=== PATIENT | male | born 1955 | race Caucasian/White ===

== ENCOUNTER 2019-01-14 09:09 | Emergency (ER) | payer OTHER ==
[~2019-01-14] VITALS: Ht 172.7 cm; Wt 85.3 kg
--- OUTSIDE RECORDS SUMMARY | 2019-01-14 09:11 | XMS REPORT ---
Author Author [facility] Address Unknown Phone Unavailable Care Team Providers Care Script Writer Name Role Phone Unavailable Unavailable Payers Payer Name Policy Type Policy Number Effective Date Expiration Date Problems This patient has no known problems. Allergies, Adverse Reactions, Alerts Allergy Name Allergy Type Status Severity Reaction(s) Onset Date Inactive Date Treating Clinician Comments No Known Allergies DA Active U 2018-01-31 00:00:00 No Known Contrast Allergies DA Active U 2007-06-06 00:00:00 No Known Drug Allergies DA Active U 2007-06-06 00:00:00 No Known Food Allergies DA Active U 2007-06-06 00:00:00 No Known Other Allergies DA Active U 2007-06-06 00:00:00 Medications This patient has no known medications. Encounters Start Date/Time End Date/Time Encounter Type Admission Type Attending Clinicians [facility] Care Department Encounter ID 2018-10-22 23:00:00 2018-10-22 19:53:00 Inpatient E [facility] [id number] 2018-09-02 08:58:00 2018-09-02 08:58:00 Outpatient [id number]
[2019-01-14] MEDS ORDERED: BRILINTA90 MG PO (09:27)
[2019-01-14] MEDS ORDERED: ASPIR 8181 MG PO (09:27)
[2019-01-14] MEDS ORDERED: CARVEDILOL12.5 MG PO (09:27)
[2019-01-14] MEDS ORDERED: PANTOPRAZOLE SO40 MG PO (09:27)
[2019-01-14 09:43] LABS: BASOPHILS # (AUTO) 0.1 (0.0-0.1); BASOPHILS % 0.8 % (0.0-1.0); BILIRUBIN,URINE NEGATIVE (NEGATIVE); CLARITY,URINE SL CLOUDY (CLEAR); COLOR,URINE YELLOW (YELLOW); EOSINOPHILS # (AUTO) 0.2 (0.0-0.4); EOSINOPHILS % 3.6 % (0.0-6.0); HEMATOCRIT 46.2 % (38.2-49.6); HEMOGLOBIN 15.4 g/dL (14.0-18.0); KETONES,URINE NEGATIVE (NEGATIVE); LEUKOCYTE ESTERASE ,URINE NEGATIVE (NEGATIVE); MEAN CORPUSCULAR HEMOGLOBIN 30.9 pg (28-32); MEAN CORPUSCULAR HGB CONC 33.3 g/dL (31-35); MEAN CORPUSCULAR VOLUME 92.8 fL (81-99); MONOCYTES # (AUTO) 0.7 (0.2-0.8); MONOCYTES % 10.9 % (4.4-11.3); NEUTROPHILS # (AUTO) 3.5 (2.1-6.9); NEUTROPHILS % 53.1 % (38.7-80.0); NITRITE,URINE NEGATIVE (NEGATIVE); PLATELET COUNT 228 x10e3/uL (140-360); PROTEIN,URINE DIPSTICK NEGATIVE (NEGATIVE); RED BLOOD COUNT 4.98 x10e6/uL (4.3-5.7); RED CELL DISTRIBUTION WIDTH 12.8 % (11.7-14.4); URINE UROBILINOGEN 0.2 mg/dL (0.2 - 1)
[2019-01-14 09:52] LABS: BACTERIA,URINE MODERATE /HPF; EPITHELIAL CELLS,URINE FEW /LPF; MUCUS,URINE MODERATE (RARE); RBC,URINE 0-5 /HPF (0-5); WBC,URINE (MAN) 0-5 /HPF (0-5)
[2019-01-14 10:08] LABS: ALANINE AMINOTRANSFERASE 31 IU/L (0-55); ALBUMIN 4.2 g/dL (3.5-5.0); ALBUMIN/GLOBULIN RATIO 1.3 (0.8-2.0); ALKALINE PHOSPHATASE 81 IU/L (40-150); ANION GAP 12.8 mmol/L (8-16); BLOOD UREA NITROGEN 17 mg/dL (7-26); BUN/CREATININE RATIO 16 (6-25); CALCIUM 9.8 mg/dL (8.4-10.2); CARBON DIOXIDE 27 mmol/L (22-29); CHLORIDE 103 mmol/L (98-107); CREATINE KINASE 207 IU/L (30-200); CREATININE, SERUM 1.08 mg/dL (0.72-1.25); EST GLOMERULAR FILTRATION RATE > 60 ML/MIN (60-); GLUCOSE 104 mg/dL (74-118); POTASSIUM 3.8 mmol/L (3.5-5.1); SODIUM 139 mmol/L (136-145)
--- NOTE | 2019-01-14 10:12 | Diagnostic Imaging Report ---
EXAM: CHEST 2 VIEWS DATE: 01/14/2019 9:31 AM INDICATION: Chest pain COMPARISON: None FINDINGS: The trachea is midline. The lungs are symmetrically expanded without evidence for focal consolidation, pneumothorax, or significant pleural effusion. The cardiomediastinal silhouette and pulmonary vasculature are within normal limits. No acute osseous abnormalities identified. The surrounding soft tissues are unremarkable. IMPRESSION: No acute cardiopulmonary process identified. Signed by: Dr. Dean Jorge MD on 01/14/2019 10:08 AM
[2019-01-14 10:18] LABS: INR 0.91; PROTHROMBIN TIME 12.7 seconds (11.9-14.5)
[2019-01-14 10:19] LABS: PARTIAL THROMBOPLASTIN TIME 25.8 seconds (23.8-35.5)
[2019-01-14] MEDS ORDERED: FAMOTIDINE20 MG PO (11:17)
[2019-01-14] MEDS ORDERED: FAMOTIDINE 20 MG TAB PO ONE (11:30)
== END 2019-01-14 11:01 | disposition home or self-care (01) ==
LOC: ER 09:09
DX: R07.89 Other chest pain (principal); K21.0 Gastro-esophageal reflux disease with esophagitis; I10 Essential (primary) hypertension; E78.5 Hyperlipidemia, unspecified; I25.10 Atherosclerotic heart disease of native coronary artery without angina pectoris
CPT/HCPCS: 36415; 71046; 80053; 81001; 82550; 82553; 84484; 85025; 85610; 85730; 93005; 99283